=== PATIENT | female | born 1995 | race Caucasian/White ===

== ENCOUNTER 2018-11-30 12:57 | Emergency (ER) | payer OTHER ==
[2018-11-30 13:04] VITALS: BP 123/84
--- NOTE | 2018-11-30 13:43 | EDPHY ---
H & P Time Seen by Provider: 11/30/18 13:05 HPI/ROS: CHIEF COMPLAINT: Headache, photophobia post head injury HISTORY OF PRESENT ILLNESS: 23-year-old female overall healthy, no anticoagulant use, arrives in the ER via private vehicle with mother. Patient reports that 2 days ago she works at laid back on her bed suddenly and impacted the left occipital region against the wood molding. No loss of consciousness but did feel temporarily dazed. Did not impact her C-spine. Ever since she has been experiencing difficulty concentrating, photosensitivity, audio sensitivity, nausea, emotional lability. She is particularly concerned because her final examinations start tomorrow and she is having difficulty studying. Denies: Gait instability, vomiting, peripheral paresthesia, weakness, numbness , laceration, abrasion, slurred speech, diplopia REVIEW OF SYSTEMS: 10 systems reviewed and negative with the exception of the elements mentioned in the history of present illness PAST MEDICAL/SURGICAL HISTORY: Lisette. no anticoagulant use, SOCIAL HISTORY: Student. PHYSICAL EXAM 1) GENERAL: Well-developed, well-nourished, alert and oriented. Appears to be in no acute distress. Answering questions appropriately. Sitting in a darkened room, averse to light and sound. 2) HEAD: Normocephalic, atraumatic 3) HEENT: Pupils equal, round, reactive to light bilaterally. Positive photophobia Negative Horners. Nasopharynx, oropharynx, clear. No deformity or angulation of nose. No septal hematoma. No rhinorrhea. No oral trauma. Ears bilaterally with normal tympanic membranes. No hemotympanum. No fluid or blood in the external auditory canal. No raccoon eyes. No Briggs sign. Teeth are normally aligned with no gross malocclusion, TMJ bilaterally nontender, facial bones nontender including the zygomatic arch, maxilla mandible. 4) NECK: No cervical collar is on. Posterior cervical spine is nontender, no stepoff, no effusion. Full range of motion which does not elicit any midline cervical spine pain, no posterior midline tenderness, no step-off. No carotid bruit 5) LUNGS: Clear to auscultation bilaterally, no wheezes, no rhonchi, no retractions. No obvious signs of trauma. No chest wall pain. No flaring, no grunting. Moving symmetrically. No crepitus. 6) HEART: [Regular rate and rhythm, 7) ABDOMEN: No guarding, no rebound, no focal tenderness, no peritoneal signs, no signs of trauma, no ecchymosis 8) MUSCULOSKELETAL: Moving all extremities, no focal areas of tenderness, no obvious trauma. 9) BACK: No midline vertebral tenderness, no fluctuance, no step-off, no obvious trauma, no visual or palpable abnormality. 10) SKIN: No laceration. No abrasion 11) NEURO: Awake, alert, and oriented to person, place and time. Answers questions appropriately. There were no obvious focal neurologic abnormalities. No cerebellar dysfunction. Cranial nerves 2 through to 12 intact. Normal steady gait. Upper and lower extremities bilaterally with strength 5 / 5, reflexes 2+. DIFFERENTIAL DIAGNOSIS: Not necessarily in any particular order, my differential diagnosis includes, but is not limited to, concussion, skull fracture, intraparenchymal contusion, subarachnoid, subdural and epidural hematoma. The patient understands that this diagnosis is provisional and can never be 100% accurate. Smoking Status: Never smoked Constitutional: Initial Vital Signs Temperature (C) 36.7 C 11/30/18 13:01 Heart Rate 62 11/30/18 13:01 Respiratory Rate 18 11/30/18 13:01 Blood Pressure 123/84 H 11/30/18 13:01 O2 Sat (%) 94 11/30/18 13:01 O2 Delivery Mode Room Air Allergies/Adverse Reactions: No Known Allergies Allergy (Unverified 11/30/18 13:01) Home Medications: Medication Instructions Recorded Cyclobenzaprine [Flexeril 10 MG 10 mg PO TID #15 tab 11/30/18 (RX)] Lidocaine [Lidoderm] 1 each TP BID #30 adh..patch 11/30/18 MDM/Departure - MDM Imaging Results: Imaging Impressions Head CT 11/30/18 13:32 Impression: 1. Normal CT brain without contrast. 2. No skull fracture or hemorrhage. Findings and recommendations discussed with Emergency Department physician, Emre Ramirez at 13:53 hour, 11/30/2018. Final report concurs with initial preliminary interpretation. Images reviewed myself ED Course/Re-evaluation: 2:00 p.m.: Re-evaluation. Discussed negative imaging results. She remains with a nonfocal exam. We discussed more than likely post-concussive syndrome. Recommend minimization of light, sound and other stimuli. I have given her referral to Dr. Loren Dejesus and also provided the name of Dr. Ivana Cerrato, neurologist in [place], [place]. She is given a note for school. She also notes tenderness in her paraspinous cervical muscles. Doubt midline C-spine injury, doubt vertebral vessel dissection. Provided my usual customary cervical precautions and recommend no manipulation, no chiropractic manipulation , no dry needling, no deep tissue massage. Will prescribe her Flexeril as well as Lidoderm patches. Provided her 2nd impact syndrome precautions. She and mother feel comfortable being discharged home. Patient feels comfortable being discharged. All questions and concerns addressed by myself. Patient given my usual and customary discharge precautions and instructions regarding their clinical impression. Care of patient under supervision of secondary supervising physician Dr Landrum . - Depart Disposition: Home, Routine, Self-Care Clinical Impression: Post concussive syndrome Condition: Good Instructions: Head Injury (ED) Additional Instructions: ALTHOUGH THERE IS NO EVIDENCE OF SERIOUS HEAD INJURY AT THIS TIME, DELAYED SIGNS CAN APPEAR 24 TO 48 HOURS AFTER INJURY. PLEASE RETURN TO THE EMERGENCY DEPARTMENT (ED) IMMEDIATELY IF YOU HAVE INCREASED HEADACHE, PERSISTENT HEADACHE , VOMITING, WEAKNESS, CONFUSION OR VISUAL PROBLEMS. WE RECOMMEND THAT YOU DO NOT RESUME CONTACT SPORTS OR ACTIVITIES THAT TAKE COORDINATION OR BALANCE SUCH SKIING OR RIDING A BICYCLE UNTIL CLEARED TO DO SO BY YOUR DOCTOR OR BY A NEUROLOGIST. Stand Alone Forms: School Excuse Prescriptions: Cyclobenzaprine [Flexeril 10 MG (RX)] 10 mg PO TID #15 tab Lidocaine [Lidoderm] 1 each TP BID #30 adh..patch Referrals: Loren Dejesus MD [Medical Doctor] - 2-3 days, call for appt.
== END 2018-11-30 14:18 | disposition home or self-care (01) ==
DX: F07.81 Postconcussional syndrome (principal)